=== PATIENT | female | born 1980 | race Two or more races ===

== ENCOUNTER 2024-09-26 12:33 | Emergency (ER) | payer OTHER ==
[~2024-09-26] VITALS: Ht 149.9 cm; Wt 63.5 kg
[2024-09-26] MEDS ORDERED: FAMOTIDINE/PF 20 MG/2 ML VIAL IV ONE (14:15)
[2024-09-26] MEDS ORDERED: 0.9 % SODIUM CHLORIDE 1,000 ML IV ONE (14:15)
[2024-09-26] MEDS ORDERED: FAMOTIDINE/PF 20 MG/2 ML VIAL ONE (14:32)
[2024-09-26] MEDS ORDERED: DIATRIZOATE MEGLUMINE, SODIUM 30 ML BOTTLE ONE (15:02)
[2024-09-26 15:27] LABS: BASO % 0.3 % (0.1-1.2); EOS # 0.07 (0.04-0.54); EOS % 0.9 % (0.7-7.0); LYMPH # 1.98 (1.18-3.74); LYMPH % 25.0 % (19.3-53.1); MEAN PLATELET VOLUME 11.30 fl (9.4-12.4); MONO # 0.52 (0.24-0.82); MONO % 6.6 % (4.7-12.5); NEUT # 5.32 (1.56-6.13); NEUT % 66.9 % (34.0-71.1); RED CELL DISTRIBUTION WIDTH 14.3 % (11.6-14.4)
[2024-09-26 15:32] LABS: INR 0.97
[2024-09-26 15:42] LABS: ALT/SGPT 36.0 U/L (12-78); AST/SGOT 38.0 U/L (15-37); BILIRUBIN TOTAL 1.26 mg/dL (0.3-1.2); BUN CREA RATIO 19.0 (7.0-25.0); CREATININE SERUM 0.74 mg/dL (0.55-1.02); GFR 84.87; GLOBULINA 3.8 G/DL (2.4-3.5); GLUCOSE FASTING 95.0 mg/dL (65-100); OSMOLALITY SERUM 283.0 MOSM/KG (275-295)
[2024-09-26 15:58] LABS: URINE APPEARANCE Clear; URINE BILIRRUBIN Negative (NEGATIVE); URINE BLOOD Negative; URINE COLOR Yellow; URINE GLUCOSE Negative (NEGATIVE); URINE KETONE 15 (NEGATIVE); URINE LEUKOCYTE Negative; URINE NITRATE Negative; URINE PROTEIN Negative (NEGATIVE); URINE UROBILINOGEN 0.2 E.U./dl
[2024-09-26 16:02] LABS: URINE BACTERIA 7.1 uL (0.0-1933); URINE EPITHELIAL CELLS 15.5 uL (0.0-38.8); URINE RBC 12.0 uL (0.0-20.8); URINE WBC 16.9 uL (0.0-23.2)
[2024-09-26 16:12] LABS: URINE CAST 0.00 uL (0.0-1.40)
== END 2024-09-26 20:24 ==
LOC: ER 12:33
PROVIDERS: Emergency Medicine
DX: R10.9 Unspecified abdominal pain (principal); R14.0 Abdominal distension (gaseous)